=== PATIENT | male | born 1980 ===

== ENCOUNTER 2021-03-23 09:36 | Emergency (ER) | payer SELFPAY ==
[~2021-03-23] VITALS: Ht 172.7 cm; Wt 81.8 kg
[2021-03-23 10:00] VITALS: TEMP 97.8
[2021-03-23] MEDS ORDERED: PREDNISONE10 MG PO (10:19)
[2021-03-23] MEDS ORDERED: ATARAX50 MG PO (10:19)
[2021-03-23 11:17] VITALS: BP 137/92; PULSE 64
== END 2021-03-23 11:17 | disposition home or self-care (01) ==
LOC: COL.ER 09:36
DX: T78.40XA Allergy, unspecified, initial encounter (principal); F17.210 Nicotine dependence, cigarettes, uncomplicated
CPT/HCPCS: J1100; J1200

== ENCOUNTER 2021-04-01 08:11 | Emergency (ER) | payer SELFPAY ==
[~2021-04-01] VITALS: Ht 172.7 cm; Wt 81.8 kg
[~2021-04-01 08:11] MED LIST: ATARAX50 MG PO; PREDNISONE10 MG PO
[2021-04-01 08:22] VITALS: BP 126/88; TEMP 97.9
[2021-04-01] MEDS ORDERED: PREDNISONE10 MG PO (09:03)
[2021-04-01] MEDS ORDERED: PEPCID 20MG TAB20 MG PO (09:03)
[2021-04-01] MEDS ORDERED: ATARAX50 MG PO (09:03)
[2021-04-01] MEDS ORDERED: ZYRTEC 10MG10 MG PO (09:03)
[2021-04-01 09:30] VITALS: PULSE 87
== END 2021-04-01 09:30 | disposition home or self-care (01) ==
LOC: COL.ER 08:11
DX: T78.40XA Allergy, unspecified, initial encounter (principal); F17.210 Nicotine dependence, cigarettes, uncomplicated
CPT/HCPCS: J1100; J1200

== ENCOUNTER 2021-12-16 15:53 | Emergency (ER) | payer SELFPAY ==
[~2021-12-16] VITALS: Ht 172.7 cm; Wt 81.8 kg
[~2021-12-16 15:53] MED LIST changes: +PEPCID 20MG TAB20 MG PO; +ZYRTEC 10MG10 MG PO
[2021-12-16 16:03] VITALS: BP 151/94; TEMP 99.1
[2021-12-16] MEDS ORDERED: VALTREX1 GM PO (16:32)
[2021-12-16] MEDS ORDERED: PREDNISONE20 MG PO (16:32)
[2021-12-16 16:39] VITALS: PULSE 78
== END 2021-12-16 16:39 | disposition home or self-care (01) ==
LOC: COL.ER 15:53
DX: G51.0 Bell's palsy (principal)
CPT/HCPCS: J7512